=== PATIENT | male | born 1975 | race Hispanic/Latino ===

== ENCOUNTER 2016-04-23 15:37 | Emergency (ER) | payer SELFPAY ==
[~2016-04-23] VITALS: Ht 172.7 cm; Wt 86.2 kg
[2016-04-23 15:43] VITALS: BP 139/89
--- NOTE | 2016-04-23 16:51 | ED HAND/WRIST INJURY COMPLAINT ---
History of Present Illness General Chief Complaint: Laceration Procedure Stated Complaint: LAC TO L HAND 3RD FINGER Source: patient, old records Exam Limitations: no limitations Vital Signs & Intake/Output Vital Signs & Intake/Output Vital Signs Date Time Temp Pulse Resp B/P Pulse O2 O2 Flow FiO2 Ox Delivery Rate 04/23 1543 98.3 88 20 139/89 97 Room Air Allergies Coded Allergies: No Known Allergies (04/23/16) Reconcile Medications Amoxicillin/Potassium Clav (Augmentin 875-125 Tablet) 875 MG-125 MG TABLET 1 TAB PO BID ppx Oxycodone HCl/Acetaminophen (Percocet 5-325 MG Tablet) 5 MG-325 MG TABLET 1 TAB PO BID pain Triage Note: REPORTS ACCIDENTAL LACERATION TO THE LEFT MIDDLE FINGER. TETANUS RECEIVED 5 MONTHS AGO. Triage Nurses Notes Reviewed? yes Occurred: just prior to arrival Duration: hour(s): (1), constant Timing: recent history Injury Environment: work Severity: mild, moderate Severity Numbers: 4 Pain/Injury Location: Left: 3rd finger. Context: laceration Method of Injury: laceration No Modifying Factors: none Associated Symptoms: none HPI: 41-year-old male no medical history presents to emergency room for evaluation status post sustaining injury to his left third finger when he accidentally cut it on a saw while at work cutting wood. He is right-hand dominant. He now presents complain 4 out of 10 and aching throbbing pain to the distal aspect of the third finger. He denies any numbness or tingling there is no active bleeding is up-to-date on his tetanus. There are no modifying factors or associated symptoms or radiation of pain (REMINGTON MORE) Past History Travel History Traveled to [place] past 21 day No Medical History Any Pertinent Medical History? none Surgical History Surgical History: none Psychosocial History What is your primary language German Tobacco Use: Never used Family History Hx Contributory? No (REMINGTON MORE) Review of Systems Review of Systems Constitutional: Reports: see HPI. All Other Systems: Reviewed and Negative Comments Review of systems: See HPI, All other systems negative. Constitutional, no chills no fever, no malaise HEENT: No visual changes no sore throat no congestion Cardiovascular: No chest pain , no palpitation Skin, no jaundice no rashes, no change in skin Respiratory: No dyspnea no cough no sputum GI: No nausea no vomiting, no diarrhea, Muscle skeletal: No joint pain, no back pain, no neck pain, Neurologic: No numbness no headache Psych: No stress Heme/endocrine: No bruising no bleeding Immunology: No lymphadenopathy, (REMINGTON MORE) Physical Exam Physical Exam General Appearance: well developed/nourished, alert, awake Hand Left: 3rd finger Hand Right: normal inspection, normal range of motion Comments: Well-developed well-nourished patient in no apparent distress. HEENT: Atraumatic, extraocular motion intact Neck: Supple, FROM Back: FROM Cardiovascular: Regular rate and rhythms no murmurs rubs or gallops, Respiratory: No respiratory distress. Patient speaking in full complete sentences. Shoulder: Atraumatic/Stable. FROM . Elbow: Atraumatic/stable. FROM. No laxity Upper arm/Forearm: Atraumatic. Nontender. No edema, 5 out of 5 ex chef strength noted to bilateral upper extremities Hand/Wrist: There is a avulsion /amputation injury noted to the dorsal distal aspect of the left third finger involving the lateral aspect of the nail, there is no visualized deep tendon or bone exposed, cap refills within normal limits. Sensation FROM Pulses: Normal/equal radial pulses bilaterally. Brisk cap refill Lower Extremities: full range of motion Neuro: Alert and oriented x3 Skin: Warm & dry;No appreciable rash on exposed skin Psych: Mood affect normal, normal memory normal judgment. (REMINGTON MORE) Progress Differential Diagnosis: abscess, cellulitis, contusion, compartment syndrome, dislocation, fracture, sprain, TENDON INJURY Plan of Care: Orders Procedure Date/time Status XRY-FINGERS, LEFT 04/23 8483 Active Patient is declining anything stronger than Motrin for pain Discussed with him his x-ray results -it was recommended the patient that the remainder of the nail on the third finger be removed after digital block was performed the patient is refusing discussed with him the harm of leaving the nail on, which again he is declining. xerofrom ands sterile dressing applied along iwth Need and importance of close follow-up with hand specialist Dr. Whitfield prescription for Augmentin Percocet provided sterile dressing was applied discussed the patient need to return immediately with any concerns or signs of infection numbness tingling fever or redness warmth discharge he feels comfortable to splint answered all discussions cleared for discharge (REMINGTON MORE) Diagnostic Imaging: Viewed by Me: Radiology Read. Discussed w/RAD: Radiology Read. Radiology Impression: PATIENT: HRETT MENEZES PRESENT AGE: 41 PATIENT ACCOUNT NO: [id number] : 73 LOCATION: [facility] ORDERING PHYSICIAN: REMINGTON THOMAS SERVICE DATE: 04/23/16 EXAM TYPE: RAD - XRY- FINGERS, LEFT EXAMINATION: Left middle digit. CLINICAL INFORMATION: Trauma. Partial amputation. COMPARISON: None TECHNIQUE: Three views of the left middle digit. FINDINGS: Soft tissue laceration of the tip of the left middle digit. There is loss of a small portion of the distal tuft of the distal phalanx. There is a divot seen on the AP view at the distal tuft of the distal phalanx at the radial side of the bone. IMPRESSION: Soft tissue laceration distal to middle digit. Small loss of bone at the distal tuft of the distal phalanx at the site of laceration DICTATED BY: LILI MAGALLON MD DATE/TIME DICTATED:04/23/161841 LINE MAINTAINER SECTION:JESSI DATE/TIME TRANSCRIBED:04/23/161841 CONFIDENTIAL, DO NOT COPY WITHOUT APPROPRIATE AUTHORIZATION. <Electronically signed in Other Vendor System> SIGNED BY: LILI MAGALLON MD 04/23/161847 (REMINGTON MORE) Departure Departure Disposition: HOME OR SELF CARE Condition: Stable Clinical Impression Primary Impression: Partial traumatic metacarpophalangeal amputation of finger Referrals: DANIELLE WHITFIELD MD PATIENT HAS NO PRIMARY CARE DR (PCP/Family) Additional Instructions: Follow-up with hand specialist Dr. hWitfield tomorrow. Augmentin as discussed for wound prophylaxis. Tylenol or Motrin every 4-6 hours, Percocet as needed for breakthrough pain use caution as this will make you drowsy no driving drinking alcohol or operating machinery while taking this return immediately with any concerns or signs of infection: Redness warmth swelling discharge fever or chills These prescriptions were sent to your pharmacy Departure Forms: Customer Survey General Discharge Information Prescriptions: Current Visit Scripts Amoxicillin/Potassium Clav (Augmentin 875-125 Tablet) 1 TAB PO BID #14 TAB Oxycodone HCl/Acetaminophen (Percocet 5-325 MG Tablet) 1 TAB PO BID #10 TAB (REMINGTON MORE) PA/JUNIOR TECHNICAL WRITER Co-Sign Statement Statement: ED Attending supervision documentation- [] I saw and evaluated the patient. I have also reviewed all the pertinent lab results and diagnostic results. I agree with the findings and the plan of care as documented in the PA's/JUNIOR TECHNICAL WRITER's documentation. [X] I have reviewed the ED Record and agree with the PA's/JUNIOR TECHNICAL WRITER's documentation. [] Additions or exceptions (if any) to the PAs/JUNIOR TECHNICAL WRITER's note and plan are summarized below: [] (KIP YOST DO)
[2016-04-23] MEDS ORDERED: AUGMENTIN 875-1 EACH PO (18:27)
[2016-04-23] MEDS ORDERED: PERCOCET 5-3251 EACH PO (18:27)
--- NOTE | 2016-04-23 18:48 | RADIOLOGY REPORT ---
EXAMINATION: Left middle digit. CLINICAL INFORMATION: Trauma. Partial amputation. COMPARISON: None TECHNIQUE: Three views of the left middle digit. FINDINGS: Soft tissue laceration of the tip of the left middle digit. There is loss of a small portion of the distal tuft of the distal phalanx. There is a divot seen on the AP view at the distal tuft of the distal phalanx at the radial side of the bone. IMPRESSION: Soft tissue laceration distal to middle digit. Small loss of bone at the distal tuft of the distal phalanx at the site of laceration
== END 2016-04-23 18:49 ==
LOC: ERH 15:37
DX: S68.123A Partial traumatic metacarpophalangeal amputation of left middle finger, initial encounter (principal); W27.0XXA Contact with workbench tool, initial encounter
CPT/HCPCS: 73140-LT